=== PATIENT | male | born 1970 | race Two or more races ===

== ENCOUNTER 2022-02-12 00:26 | Emergency (ER) | payer BC ==
[~2022-02-12] VITALS: Ht 177.8 cm; Wt 104.3 kg
--- NOTE | 2022-02-12 01:00 | NUR ---
[id number] FROM HOME C/O FEELING ANIXOUS WITH [place] AND HIGH BP AT HOME PER EMS. PATIENT IS ANXIOUS. AAOX4. ATTACHED TO MONITOR. VITALS CHECKED.
--- NOTE | 2022-02-12 01:45 | NUR ---
CAME BACK FROM CT DEPT. PT REFUSED TO DO CXR. DR PERRY MADE AWARE
[2022-02-12 01:51] LABS: BASOPHILS % (AUTO) 0.2 % (0.0-2.0); EOSINOPHILS % (AUTO) 0.3 % (0.0-6.0); HEMATOCRIT 48 % (39-51); HEMOGLOBIN 16.2 g/dL (13.5-17.5); LYMPHOCYTES # (AUTO) 1.6 K/uL (0.8-4.8); LYMPHOCYTES % (AUTO) 13.5 % (20.0-44.0); MEAN CORPUSCULAR HGB CONC 34 g/dl (31.0-36.0); MEAN CORPUSCULAR VOLUME 88 fL (80-96); MONOCYTES # (AUTO) 0.8 K/uL (0.1-1.30); MONOCYTES % (AUTO) 6.6 % (2.0-12.0); NEUTROPHILS # (AUTO) 9.2 K/uL (1.8-8.9); NEUTROPHILS % (AUTO) 79.4 % (43.0-81.0); PLATELET COUNT (AUTO) 225 K/uL (150-450); RED BLOOD CELL COUNT(AUTO) 5.39 MIL/uL (4.5-6.0); WHITE BLOOD COUNT (AUTO) 11.6 K/uL (4.3-11.0)
[2022-02-12] MEDS ORDERED: IBUPROFEN 400 MG TABLET ONE (02:01)
[2022-02-12 02:03] LABS: CALCIUM, SERUM 9.4 mg/dL (8.5-10.1); CARBON DIOXIDE 25 mmol/L (21-32); CHLORIDE 101 mmol/L (98-107); CREATININE 1.4 mg/dL (0.6-1.3); GLUCOSE 219 mg/dL (74-106); POTASSIUM 3.8 mmol/L (3.5-5.1); SODIUM SERUM 136 mmol/L (136-145); UREA NITROGEN, BLOOD 24 mg/dL (7-18)
[2022-02-12] MEDS: IBUPROFEN 400 MG TABLET PO ONE (02:03)
[2022-02-12 02:11] LABS: ALANINE AMINOTRANSFERASE 72 U/L (12-78); ALBUMIN 4.7 g/dL (3.4-5.0); ALKALINE PHOSPHATASE 68 U/L (46-116); ASPARTATE AMINOTRANSFERASE 37 U/L (15-37); BILIRUBIN,DIRECT 0.1 mg/dL (0.0-0.2); BILIRUBIN,TOTAL 0.4 mg/dL (0.2-1.0); TOTAL PROTEIN, SERUM 7.6 g/dL (6.4-8.2)
[2022-02-12 02:15] VITALS: BP 115/78
--- NOTE | 2022-02-12 02:45 | NUR ---
Patient does not wish to proceed with medical care recommended by Dr. Tucker. Patient given information related to possible complications, up to and including , which could occur as a result of leaving the hospital at this time. Patient verbalizes understanding of risks involved due to leaving against medical advice. Patient has signed AMA form.
== END 2022-02-12 03:07 | disposition left against medical advice (07) ==
LOC: ER 00:34
DX: R51.9 Headache, unspecified (principal); I10 Essential (primary) hypertension; E78.00 Pure hypercholesterolemia, unspecified
CPT/HCPCS: 36415; 70450-TC; 80048-TC; 80076-TC; 84484-TC; 85025-TC; 85730-TC